=== PATIENT | female | born 1980 | race Caucasian/White ===

== ENCOUNTER 2021-11-09 11:07 | Emergency (ER) | payer OTHER ==
[~2021-11-09] VITALS: Ht 165.1 cm; Wt 97.0 kg
[2021-11-09 12:53] VITALS: BP 140/106
== END 2021-11-09 15:43 | disposition home or self-care (01) ==
LOC: ER 11:09
DX: R25.2 Cramp and spasm (principal); M79.661 Pain in right lower leg; R50.9 Fever, unspecified; Z98.890 Other specified postprocedural states; Z88.8 Allergy status to other drugs, medicaments and biological substances
CPT/HCPCS: 93971; 99284

== ENCOUNTER 2022-05-05 17:44 | Emergency (ER) | payer OTHER ==
[~2022-05-05] VITALS: Ht 165.1 cm; Wt 93.6 kg
[2022-05-05 18:01] VITALS: BP 146/111
[2022-05-05] MEDS ORDERED: ondansetron 4mg rapidly disintigrating tab PO ONE (18:10)
[2022-05-05] MEDS ORDERED: morphine 4 MG/ML inj SYRINge IM ONE (18:10)
[2022-05-05 18:48] LABS: BASOPHILS % (AUTO) 0.4 % (0-1); EOSINOPHILS # (AUTO) 0.1 X10'3 (0-0.9); EOSINOPHILS % (AUTO) 1.5 % (0-6); HEMOGLOBIN 14.1 g/dl (12.0-16.0); LYMPHOCYTES # (AUTO) 2.8 X10'3 (1.1-4.8); LYMPHOCYTES % (AUTO) 29.4 % (21-51); MEAN CORPUSCULAR HGB CONC 34.3 g/dL (33.0-36.5); MEAN CORPUSCULAR VOLUME 90.5 FL (78-98); MEAN PLATELET VOLUME 7.8 FL (7.4-10.4); MONOCYTES # (AUTO) 0.7 X10'3 (0-0.9); MONOCYTES % (AUTO) 7.7 % (2-12); NEUTROPHILS # (AUTO) 5.9 X10'3 (1.8-7.7); PLATELET COUNT 366 X10'3 (140-440); RED BLOOD COUNT 4.53 X10'6 (4.20-5.60); RED CELL DISTRIBUTION WIDTH 13.4 % (11.5-14.5); WHITE BLOOD COUNT 9.7 X10'3 (4.5-11.0)
[2022-05-05 18:49] LABS: URINE HCG NEGATIVE (NEG)
[2022-05-05 18:50] LABS: CLARITY,URINE CLEAR (Clear); COLOR,URINE YELLOW (Yellow); GLUCOSE, URINE NEGATIVE (Neg); KETONES,URINE NEGATIVE (Neg); LEUKOCYTE ESTERASE ,URINE NEGATIVE (Neg); NITRITES, URINE NEGATIVE (Neg); OCCULT BLOOD,URINE NEGATIVE (Neg); PH,URINE 5.5 (4.8-8.0); PROTEIN,URINE NEGATIVE (Neg); UROBILINOGEN,URINE 0.2 E.U/dL (0.2-1.0)
[2022-05-05 18:55] LABS: ALANINE AMINOTRANSFERASE 25 U/L (12-78); ALBUMIN 3.9 G/DL (3.4-5.0); ALBUMIN/GLOBULIN RATIO 0.9 (1.1-1.5); ALKALINE PHOSPHATASE 101 IU/L (46-116); ANION GAP 12 (8-16); ASPARTATE AMINO TRANSFERASE 24 U/L (10-37); BILIRUBIN,TOTAL 0.3 MG/DL (0.1-1.0); BLOOD UREA NITROGEN 10 MG/DL (7-18); BUN/CREATININE RATIO 10.8 (6.6-38.0); CALCIUM 9.4 MG/DL (8.5-10.1); CHLORIDE 104 MMOL/L (99-107); CREATININE 0.93 MG/DL (0.40-0.90); GLUCOSE 123 MG/DL (70-104); LIPASE 167 U/L (73-393); POTASSIUM 3.6 MMOL/L (3.5-5.1); SODIUM 140 MMOL/L (135-145); TOTAL CARBON DIOXIDE 24.5 MMOL/L (24-32); TOTAL PROTEIN 8.2 G/DL (6.4-8.2); eGFR 67 ML/MIN
[2022-05-05 18:55] LABS: UA COLLECTION TYPE CLN CATCH MIDSTREAM
[2022-05-05] MEDS ORDERED: OXYC-150 PO (19:47)
[2022-05-05] MEDS ORDERED: ONDA4TAB12 PO (19:47)
== END 2022-05-05 19:55 | disposition home or self-care (01) ==
LOC: ER 17:45
DX: R10.31 Right lower quadrant pain (principal); R10.2 Pelvic and perineal pain; R19.7 Diarrhea, unspecified; Z90.49 Acquired absence of other specified parts of digestive tract; Z90.710 Acquired absence of both cervix and uterus; Z98.890 Other specified postprocedural states; Z88.8 Allergy status to other drugs, medicaments and biological substances; Z79.899 Other long term (current) drug therapy
CPT/HCPCS: 36415; 74176; 80053; 81003; 81025; 83690; 85025; 99284